=== PATIENT | female | born 1980 | race American Indian/Alaskan Native ===

== ENCOUNTER 2017-07-02 21:12 | Emergency (ER) | payer SELFPAY ==
[2017-07-02] MEDS ORDERED: TYLENOL ONE (21:40)
[2017-07-02] MEDS ORDERED: TYLENOL PO ONE (21:44)
[2017-07-02 22:41] LABS: Bilirubin,Urine NEG (Negative); Blood,Urine LG (Negative); Ketones,Urine NEG (Negative); Leukocyte Esterase,Urine NEG (Negative); Mucus,Urine FEW /HPF; Nitrite,Urine NEG (Negative); Protein,Urine <15 mg/dL mg/dL (Negative); Urobilinogen,Urine < 2.0 mg/dL (<2.0)
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
[2017-07-03 00:10] VITALS: BP 127/72
== END 2017-07-03 00:10 | disposition home or self-care (01) ==
LOC: ED 21:12
DX: M54.5 Low back pain (principal); V49.40XA Driver injured in collision with unspecified motor vehicles in traffic accident, initial encounter; Y93.89 Activity, other specified; Y92.89 Other specified places as the place of occurrence of the external cause; Y99.8 Other external cause status
CPT/HCPCS: 72128; 72131; 81001; 81025; 99284